=== PATIENT | female | born 1985 | race Hispanic/Latino ===

== ENCOUNTER 2018-06-05 09:46 | Emergency (ER) | payer MEDICAID, OTHER ==
[2018-06-05 11:02] LABS: BASO # 0.1 K/uL (0.0-0.2); BASO % 0.9 % (0.0-2.0); EOS # 0.3 K/uL (0.0-0.7); EOS % 4.3 % (0.0-4.0); HEMOGLOBIN 11.9 g/dL (12.0-16.0); LYMPH # 1.9 K/uL (1.0-4.3); LYMPH % 24.6 % (20.0-40.0); MEAN CELL VOLUME 87.5 fl (81.0-99.0); MEAN CORPUSCULAR HEMOGLOBIN 28.7 pg (27.0-31.0); MEAN CORPUSCULAR HGB CONC 32.8 g/dL (33.0-37.0); MEAN PLATELET VOLUME 9.7 fl (7.2-11.7); MONO # 0.4 K/uL (0.0-0.8); MONO % 5.1 % (0.0-10.0); NEUT % 65.1 % (50.0-75.0); NRBC % 0.2 % (0.0-0.0); RBC 4.14 Mil/uL (3.80-5.20); RED CELL DISTRIBUTION WIDTH 14.3 % (11.5-14.5); WHITE BLOOD COUNT 7.6 K/uL (4.8-10.8)
[2018-06-05 11:03] LABS: SQUAMOUS EPITHIAL 2 /hpf (0-5); URINE BILIRUBIN NEGATIVE (NEGATIVE); URINE BLOOD NEGATIVE (NEGATIVE); URINE CLARITY SLIGHTY-CLOUDY (Clear); URINE COLOR YELLOW (YELLOW); URINE GLUCOSE (UA) NEG (NEGATIVE); URINE LEUKOCYTE ESTERASE NEG Leu/uL (Negative); URINE PROTEIN NEGATIVE (NEGATIVE); URINE UROBILINOGEN 0.2-1.0 mg/dL (0.2-1.0)
[2018-06-05 11:07] LABS: PROTHROMBIN TIME 11.9 Seconds (9.8-13.1)
--- NOTE | 2018-06-05 11:07 | ED PDOC ---
HPI: Female Pain Time Seen by Provider: 06/05/18 10:06 Chief Complaint (Nursing): Female Genitourinary Chief Complaint (Provider): Lower abdominal pain, vaginal bleeding History Per: Patient History/Exam Limitations: no limitations Onset/Duration Of Symptoms: Days Current Symptoms Are (Timing): Still Present Quality Of Discomfort: "Pain" Associated Symptoms: denies: Fever, Chills, Nausea, Vomiting, Diarrhea, Urinary Symptoms Additional Complaint(s): 33yo female, otherwise well, , comes to ER reporting lower abdominal pain and some vaginal bleeding. Patient states she is approximately 9 weeks , denies any care so far. She reports "uncomfortable" urination but denies any burning, frequency, back pain. No additional complaints. PMD: Michael Abnormal Vaginal Bleeding: Yes Last Menstral Period: 04/03/18 : 5 Para: 4 Past Medical History Reviewed: Historical Data, Nursing Documentation, Vital Signs Vital Signs: Last Vital Signs Temp 98.1 F 06/05/18 10:12 Pulse 89 06/05/18 10:12 Resp 16 06/05/18 10:12 BP 113/67 06/05/18 10:12 Pulse Ox 100 06/05/18 10:12 - Medical History PMH: Asthma - Surgical History Surgical History: Appendectomy, (4) - Family History Family History: States: Unknown Family Hx - Home Medications Home Medications: Ambulatory Orders Medication Instructions Recorded Cyclobenzaprine [Cyclobenzaprine 10 mg PO BID #14 tab 01/18/15 HCl] Ibuprofen [Motrin] 600 mg PO Q8 #30 tab 01/18/15 Oxycodone HCl/Acetaminophen 1 tab PO Q6 PRN #6 tab 01/18/15 [Percocet 325 mg-5 mg] Albuterol 0.083% [Albuterol 0.083% 2.5 mg IH Q4H PRN #25 neb 08/10/15 Inhal Lilly (2.5 mg/3 ml) UD] Albuterol HFA [Ventolin HFA 90 2 puff IH [id number] #1 unit 08/10/15 mcg/actuation (8 g)] predniSONE [predniSONE Tab] 40 mg PO DAILY #10 tab 08/10/15 Pnv No.95/Ferrous Fum/Folic AC 1 each PO DAILY #30 tablet 06/05/18 [ Vitamin Tablet] - Allergies Allergies/Adverse Reactions: Allergies Allergy/AdvReac Type Severity Reaction Status Date / Time No Known Allergies Allergy Verified 08/10/15 11:34 Review of Systems ROS Statement: Except As Marked, All Systems Reviewed And Found Negative Constitutional: Negative for: Fever, Chills Cardiovascular: Negative for: Chest Pain Respiratory: Negative for: Shortness of Breath Gastrointestinal: Positive for: Abdominal Pain. Negative for: Nausea Genitourinary Female: Positive for: Vaginal Bleeding. Negative for: Dysuria Musculoskeletal: Negative for: Back Pain Physical Exam - Reviewed Nursing Documentation Reviewed: Yes Vital Signs Reviewed: Yes - Physical Exam Appears: Positive for: Non-toxic, No Acute Distress Head Exam: Positive for: ATRAUMATIC, NORMAL INSPECTION, NORMOCEPHALIC Skin: Positive for: Normal Color Eye Exam: Positive for: Normal appearance, EOMI, PERRL Neck: Positive for: Supple Cardiovascular/Chest: Positive for: Regular Rate, Rhythm. Negative for: Tachycardia Respiratory: Positive for: Normal Breath Sounds. Negative for: Respiratory Distress Gastrointestinal/Abdominal: Positive for: Soft, Tenderness (mild suprapubic tenderness). Negative for: Mass, Guarding, Rebound Back: Positive for: Normal Inspection. Negative for: L CVA Tenderness, R CVA Tenderness Extremity: Positive for: Normal ROM. Negative for: Pedal Edema Neurological/Psych: Positive for: Awake, Alert - Laboratory Results Result Diagrams: 06/05/18 10:45 06/05/18 10:45 Lab Results: Urine Color Yellow (YELLOW) 06/05/18 10:45 Urine Clarity Slighty-cloudy (Clear) 06/05/18 10:45 Urine pH 7.0 (5.0-8.0) 06/05/18 10:45 Ur Specific [place] 1.017 (1.003-1.030) 06/05/18 10:45 Urine Protein Negative mg/dL (NEGATIVE) 06/05/18 10:45 Urine Glucose (UA) Neg mg/dL (NEGATIVE) 06/05/18 10:45 Urine Ketones Negative mg/dL (NEGATIVE) 06/05/18 10:45 Urine Blood Negative (NEGATIVE) 06/05/18 10:45 Urine Nitrate Negative (NEGATIVE) 06/05/18 10:45 Urine Bilirubin Negative (NEGATIVE) 06/05/18 10:45 Urine Urobilinogen 0.2-1.0 mg/dL (0.2-1.0) 06/05/18 10:45 Ur Leukocyte Esterase Neg Ralph/uL (Negative) 06/05/18 10:45 Urine RBC (Auto) 1 /hpf (0-3) 06/05/18 10:45 Urine Microscopic WBC 1 /hpf (0-5) 06/05/18 10:45 Ur Squamous Epith Cells 2 /hpf (0-5) 06/05/18 10:45 - ECG O2 Sat by Pulse Oximetry: 100 (RA) Pulse Ox Interpretation: Normal Medical Decision Making Medical Decision Makinyo female w/ lower abdominal pain, vaginal bleeding in setting of Plan: -- US OB -- UDip, UA -- labs Accession No. : [id number] Patient Name / ID : EVELIO PAEZ / [id number] Exam Date : 06/05/2018 11:41:06 ( Approved ) Study Comment : Sex / Age : F / 33Y Creator : jamal gallagher Dictator : Norbert Sousa MD Director Of Cloud Services : Building Services Coordinator : Norbert Sousa MD Approver2 : Report Date : 06/05/2018 12:20:14 My Comment : Date of service: 06/05/2018 PROCEDURE: First trimester ultrasound HISTORY: Vaginal spotting COMPARISON: None TECHNIQUE: Standard protocol for this study/examination. FINDINGS: LMP: 04/03/2018 Prior examinations from the current : None. TECHNIQUE: Real-time 2D imaging, duplex and color Doppler. FINDINGS: Cardiac activity: Present Rate: 174 BPM Measurements: [place] rump length: 2.26 cm Gestational age based on CRL 9 weeks Gestational age 10 weeks 1 day based on gestational sac measurement 4.60 cm Gestational age derived from LMP: 9 weeks LELIA based on LMP: 01/08/2019. LELIA based on biometry: 01/04/2019. Gestational concordance noted Yolk sac identified Cervix: No Cervical abnormalities: Negative examination for cervical dilatation or effacement. Closed cervix measuring 4.3 cm Subchorionic hemorrhage: Small subchorionic hemorrhage interposed between the gestational sac in the fundus measures 0.8 x 1.2 x 1.8 cm. UTERUS: 7.1 x 9.1 x 11.8 cm. ADNEXA: Right: 2 x 2.9 x 2.9 cm. Normal Doppler arterial waveform documented. Left: Not visible. Fluid in the cul-de-sac: None. IMPRESSION: Nine weeks 4 days live intrauterine gestation. Gestational concordance documented. Limitations of the current examination: Nonvisualization left adnexa. ScribeAttestation: Documented byCarla Colvin, acting as a scribe for Leti Dela Cruz MD. Provider ScribeAttestation: All medical record entries made by the Scribe were at my direction and personally dictated by me. I have reviewed the chart and agree that the record accurately reflects my personal performance of the history, physical exam, medical decision making, and the department course for this patient. I have also personally directed, reviewed, and agree with the discharge instructions and disposition. Disposition - Clinical Impression Clinical Impression: Threatened - Disposition [facility] Disposition: Routine/Home Disposition Time: 13:26 Condition: STABLE Prescriptions: Pnv No.95/Ferrous Fum/Folic AC [ Vitamin Tablet] 1 each PO DAILY #30 tablet Instructions: Threatened Miscarriage Forms: [email or web address] (Senegalese)
[2018-06-05 11:09] LABS: PARTIAL THROMBOPLASTIN TIME 37.1 Seconds (25.6-37.1)
[2018-06-05 11:23] LABS: ALB/GLOB RATIO 1.2 (1.0-2.1); ALBUMIN 3.9 g/dL (3.5-5.0); ALT/SGPT 17 U/L (9-52); AST/SGOT 14 U/L (14-36); BLOOD UREA NITROGEN 8 mg/dl (7-17); CALCIUM 9.1 mg/dL (8.4-10.2); GFR NON-AFRICAN AMERICAN > 60
--- NOTE | 2018-06-05 12:55 | US ---
Date of service: 06/05/2018 PROCEDURE: First trimester ultrasound HISTORY: Vaginal spotting COMPARISON: None TECHNIQUE: Standard protocol for this study/examination. FINDINGS: LMP: 04/03/2018 Prior examinations from the current : None. TECHNIQUE: Real-time 2D imaging, duplex and color Doppler. FINDINGS: Cardiac activity: Present Rate: 174 BPM Measurements: [place] rump length: 2.26 cm Gestational age based on CRL 9 weeks Gestational age 10 weeks 1 day based on gestational sac measurement 4.60 cm Gestational age derived from LMP: 9 weeks LELIA based on LMP: 01/08/2019. LELIA based on biometry: 01/04/2019. Gestational concordance noted Yolk sac identified Cervix: No Cervical abnormalities: Negative examination for cervical dilatation or effacement. Closed cervix measuring 4.3 cm Subchorionic hemorrhage: Small subchorionic hemorrhage interposed between the gestational sac in the fundus measures 0.8 x 1.2 x 1.8 cm. UTERUS: 7.1 x 9.1 x 11.8 cm. ADNEXA: Right: 2 x 2.9 x 2.9 cm. Normal Doppler arterial waveform documented. Left: Not visible. Fluid in the cul-de-sac: None. IMPRESSION: Nine weeks 4 days live intrauterine gestation. Gestational concordance documented. Limitations of the current examination: Nonvisualization left adnexa.
[2018-06-05 13:42] VITALS: BP 114/68; PULSE 77; RESP 17; TEMP 98
[2018-06-09 16:18] VITALS: O2SAT 100
== END 2018-06-05 13:35 | disposition home or self-care (01) ==
LOC: H.ER 09:46
DX: O20.0 Threatened abortion (principal); J45.909 Unspecified asthma, uncomplicated; Z3A.10 10 weeks gestation of pregnancy

== ENCOUNTER 2018-06-27 23:25 | Emergency (ER) | payer MEDICAID ==
[2018-06-28 00:05] VITALS: BP 119/70; PULSE 92; RESP 16; TEMP 98.2; O2SAT 96
[2018-06-28] MEDS ORDERED: Lidocaine 1% Inj (20ml) INFIL ONE (00:53)
[2018-06-28] MEDS ORDERED: Tdap Vaccine 0.5 ml Vial (10-64 yrs) IM ONE ×2 (00:53→01:31)
[2018-06-28] MEDS ORDERED: Povidone Iodine Oint 10% Foilpak UD ONE (00:54)
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
[2018-06-28] MEDS ORDERED: Lidocaine Hydrochloride 1% 10 ML ONE (01:32)
--- NOTE | 2018-06-28 09:08 | RAD ---
Date of service: 06/28/2018 PROCEDURE: Right Index finger radiographs. HISTORY: finger injury COMPARISON: None. TECHNIQUE: AP radiograph of the right hand, as well as spot oblique and lateral images of index finger were obtained. 3 views obtained. FINDINGS: RIGHT INDEX FINGER: Normal right index finger, without fracture or focal lesion. Remainder of the right hand (as seen on the AP view) grossly intact. No dislocation is seen. No erosions are noted. Remainder of the digits are unremarkable. JOINTS: Normal. SOFT TISSUES: Minor soft tissue swelling of the right index finger is seen. OTHER FINDINGS: None. IMPRESSION: No fracture.
== END 2018-06-28 03:45 | disposition home or self-care (01) ==
LOC: H.ER 23:25
DX: S61.219A Laceration without foreign body of unspecified finger without damage to nail, initial encounter (principal); J45.909 Unspecified asthma, uncomplicated; W26.8XXA Contact with other sharp object(s), not elsewhere classified, initial encounter; Z23 Encounter for immunization

== ENCOUNTER 2018-07-19 01:35 | Emergency (ER) | payer MEDICAID ==
[2018-07-19 01:59] VITALS: BMI 27.3
[2018-07-19 02:00] VITALS: BP 126/83; PULSE 88; RESP 16; TEMP 97.8; O2SAT 100
[2018-07-19] MEDS ORDERED: Lidocaine 1% w Epi 1:100,000 Inj INFIL ONE (02:00)
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
--- NOTE | 2018-07-19 11:23 | CT ---
Date of service: 07/19/2018 PROCEDURE: CT HEAD WITHOUT CONTRAST. HISTORY: HEAD INJURY COMPARISON: Unenhanced head CT 06/20/2012. TECHNIQUE: Axial computed tomography images were obtained through the head/brain without intravenous contrast. Radiation dose: Total exam DLP = 816.05 mGy-cm. This CT exam was performed using one or more of the following dose reduction techniques: Automated exposure control, adjustment of the mA and/or kV according to patient size, and/or use of iterative reconstruction technique. FINDINGS: HEMORRHAGE: No intracranial hemorrhage. BRAIN: Normal hopkins-white matter differentiation and density are appreciated throughout the cerebrum and cerebellum with the brainstem appearing unremarkable as well. There is no mass effect. There is no suspicious extra-axial fluid collection and the midline brain anatomy appears diffusely unremarkable. VENTRICLES: Unremarkable. No hydrocephalus. CALVARIUM: No destructive bony lesion or displaced fracture identified including through the skullbase. PARANASAL SINUSES: Unremarkable as visualized. No significant inflammatory changes. MASTOID AIR CELLS: Unremarkable as visualized. No inflammatory changes. OTHER FINDINGS: None. IMPRESSION: Unremarkable unenhanced head CT. No significant change from prior CT dated 06/20/2012. Concordant preliminary report from [facility], 07/19/2018, 3:38 a.m..
== END 2018-07-19 04:05 | disposition home or self-care (01) ==
LOC: H.ER 01:35
DX: S01.81XA Laceration without foreign body of other part of head, initial encounter (principal); S09.90XA Unspecified injury of head, initial encounter; W19.XXXA Unspecified fall, initial encounter; Y92.480 Sidewalk as the place of occurrence of the external cause